=== PATIENT | male | born 1995 | race Caucasian/White ===

== ENCOUNTER 2018-06-14 14:27 | Emergency (ER) | payer SELFPAY ==
[~2018-06-14] VITALS: Ht 182.9 cm; Wt 71.7 kg
[2018-06-14 14:31] VITALS: BP 118/85
--- NOTE | 2018-06-14 14:50 | NUR ---
Pt presents to ED with sister for "medical clearance so I can go to rehab at [place]." NADN. Pt is AOX4. 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 I shoot up. I don't have any infections or abscesses right now." Pt ambulates to restroom with steady gait and balance for UA. Per pt's sister, "He had empty syringes when I picked him up today to bring him here. He has had an issue with drugs and alcohol since he was about 12, or 13, years old. When he isn't using drugs he is drinking, when he is using drugs he doesn't drink." Pt back to room from restroom. Pt states, "I last drank about two months ago. I have never had a seizure when I stopped drinking." Pt resting on gurney. Call light within reach. Pt denies SI or HI. Pt denies cp, sob, n/v/d, dizziness, lightheadedness, or syncope.
[2018-06-14 15:12] LABS: BASOPHILS # (AUTO) 0.04 x10^3/uL (0-0.1); BASOPHILS % (AUTO) 1 % (0-1); EOSINOPHILS % (AUTO) 5 % (1-7); LYMPHOCYTES # (AUTO) 1.56 x10^3/uL (1-3.4); LYMPHOCYTES % (AUTO) 24 % (22-44); MD NO; MEAN CORPUSCULAR HEMOGLOBIN 30.5 pg (27.5-34.5); MEAN CORPUSCULAR HGB CONC 34.1 g/dL (33.2-36.2); MEAN CORPUSCULAR VOLUME 89.3 fL (81-97); MONOCYTES # (AUTO) 0.55 x10^3/uL (0.2-0.8); MONOCYTES % (AUTO) 9 % (2-9); NEUTROPHILS # (AUTO) 4.04 x10^3/uL (1.8-6.8); NEUTROPHILS % (AUTO) 62 % (42-75); PLATELET COUNT 250 x10^3/uL (130-400); RED BLOOD COUNT 4.61 x10^6/uL (4.38-5.82); RED CELL DISTRIBUTION WIDTH 13.8 % (9.4-14.8)
[2018-06-14 15:25] LABS: ALANINE AMINOTRANSFERASE 47 U/L (12-78); ALBUMIN 3.8 g/dL (3.4-5.0); ANION GAP 5 mmol/L (5-15); CHLORIDE 108 mmol/L (98-107); CREATININE 0.78 mg/dL (0.7-1.3)
[2018-06-14 15:27] LABS: ALKALINE PHOSPHATASE 100 U/L (45-117); BILIRUBIN,TOTAL 0.1 mg/dL (0.2-1.0); TOTAL PROTEIN 6.9 g/dL (6.4-8.2)
[2018-06-14 15:30] LABS: SALICYLATE LEVEL < 1.7 mg/dL (2.8-20.0)
[2018-06-14 15:31] LABS: ACETAMINOPHEN < 2 mcg/mL (10-30)
[2018-06-14 16:11] LABS: AMPHETAMINE SCREEN, URINE Negative (Negative); BARBITURATE SCREEN, URINE Negative (Negative); BENZODIAZEPINE SCREEN, URINE Negative (Negative); CANNABINOID SCREEN, URINE Negative (Negative); COCAINE SCREEN, URINE Negative (Negative); METHADONE SCREEN, URINE Negative (Negative); OPIATE SCREEN, URINE Negative (Negative)
--- NOTE | 2018-06-14 17:27 | NUR ---
Pt left before recieving d/c education and paperwork.
== END 2018-06-14 17:29 | disposition home or self-care (01) ==
LOC: ED 15:37
DX: F15.129 Other stimulant abuse with intoxication, unspecified (principal); F11.129 Opioid abuse with intoxication, unspecified; F41.9 Anxiety disorder, unspecified
CPT/HCPCS: 36415; 80053; 80307; 80329; 85025; 99283; G0480

== ENCOUNTER 2018-09-15 12:20 | Emergency (ER) | payer MEDICAID ==
[~2018-09-15] VITALS: Ht 180.3 cm; Wt 68.3 kg
[2018-09-15 13:44] VITALS: BP 114/79
== END 2018-09-15 13:53 | disposition home or self-care (01) ==
LOC: ED 13:34
DX: L03.114 Cellulitis of left upper limb (principal); I80.9 Phlebitis and thrombophlebitis of unspecified site; Z88.8 Allergy status to other drugs, medicaments and biological substances; F17.200 Nicotine dependence, unspecified, uncomplicated
CPT/HCPCS: 36415; 80048; 82040; 85025; 87040; 99283